=== PATIENT | female | born 1960 | race Caucasian/White ===

== ENCOUNTER 2018-06-13 16:59 | Emergency (ER) | payer OTHER ==
[2018-06-13 17:14] VITALS: BP 162/64; PULSE 91; TEMP 98.4; BMI 24.6
--- NOTE | 2018-06-13 17:17 | PDOC ---
History of Present Illness - General Chief Complaint: Chest Pain Stated Complaint: FEVER, CHEST PAIN, SOB, DIZZINESS Time Seen by Provider: 06/13/18 17:16 - History of Present Illness Initial Comments: 58yo F with PMH of neck pain presenting with chest pain. Patient states that this started at 3pm while she was sitting and watching television. Patient describes it as a "pressure" that she rates 6/10. It is non-radiating and lasted for about one hour, with no relieving or worsening factors. Patient denies diaphoresis, nausea, or vomiting. Denies personal or family history of [place]. Has felt this pain before, about two weeks ago while she was sleeping. Patient was recommended by her primary care doctor to see a veneer stacker, and has an appointment next month to see one whose name she does not remember. No hemoptysis, no recent surgical history, no recent mobilization, no hormone use, no history of DVT or PE. Patient reports that for the past week she has had fevers (101 this AM), chills, sore throat, congestion, facial and facial pain for which she has taken many aclw-azh-ppogaxo medicines including robitussin, ralph seltzer plus (most recently at 2pm), pedialyte, and nasal saline spray. Has not gotten the flu shot this season. Endorses a sick contact, a baby with cough and an ear infection. No urinary or abdominal complaints. Past History - Past Medical History Allergies/Adverse Reactions: Allergies Allergy/AdvReac Type Severity Reaction Status Date / Time No Known Allergies Allergy Verified 06/13/18 17:10 Home Medications: Ambulatory Orders NK [No Known Home Medication] 06/13/18 COPD: No - Immunization History Immunization Up to Date: Yes - Suicide/Smoking/Psychosocial Hx Smoking History: Never smoked Have you smoked in the past 12 months: No Hx Alcohol Use: No Drug/Substance Use Hx: No Substance Use Type: None Review of Systems - Review of Systems Comments:: Constitutional: +fever, +chills HEENT: +throat pain, no dysphagia Cardiovascular: +chest pain, no palpitations Respiratory: +cough, +shortness of breath Gastrointestinal: no abdominal pain, no nausea, no vomiting Genitourinary: no dysuria, no frequency Musculoskeletal: +myalgia, +back pain Skin: no rash, no itching Neurologic: +headache, +dizziness *Physical Exam - Vital Signs Last Vital Signs Temp Pulse Resp BP Pulse Ox 98.4 F 91 H 18 162/64 97 06/13/18 17:11 06/13/18 17:11 06/13/18 17:11 06/13/18 17:11 06/13/18 17:11 - Physical Exam Comments: General: Awake, alert, and fully oriented, in no acute distress Head: No signs of trauma Eyes: EOMI, sclera anicteric ENT: Moist mucus membranes, non-erythematous throat without swelling or exudate ; facial pain upon palpation overlying sinuses Neck: Normal ROM, supple Lungs: Lungs clear, Normal breath sounds Cardio: Regular rhythm, S1 and S2 present Abdomen: Soft, nontender. No guarding, no rebound, no masses Extremities: Normal range of motion, Distal pulses present SKIN: Warm, Dry, normal turgor Neurologic: Cranial nerves II through XII grossly intact. Normal speech Moderate Sedation - Procedure Monitoring Vital Signs: Procedure Monitoring Vital Signs Temperature 98.4 F 06/13/18 17:11 Pulse Rate 91 H 06/13/18 17:11 Respiratory Rate 18 06/13/18 17:11 Blood Pressure 162/64 06/13/18 17:11 O2 Sat by Pulse Oximetry (%) 97 06/13/18 17:11 ED Treatment Course - LABORATORY CBC & Chemistry Diagram: 06/13/18 18:15 06/13/18 18:15 Medical Decision Making - Medical Decision Making 58yo F with PMH of neck pain presenting with chest pain. -DDX includes but not limited to ACS, MSK, influenza, URI -EKG, rate 89, QTc 459, NSR, no ST d/e -1g Ofirmev, 1L NS, Guaifenesin 600mg -Will reassess -HEART Score=1 (for age) 06/13/18 18:22 Patient reports some relief of pain, now 09/1606/13/18 19:32 Slight leukocytosis, WBC=12.6, Electrolytes normal Influenza negative Tpn negative Likely sinusitis Patient discharged *DC/Admit/Observation/Transfer Diagnosis at time of Disposition: URI (upper respiratory infection) - Discharge Dispostion Disposition: HOME Condition at time of disposition: Stable - Referrals Referrals: ON STAFF,NOT [Primary Care Provider] - - Patient Instructions Printed Discharge Instructions: DI for Sinusitis Additional Instructions: You came into the ED for chest pain. We performed blood work, EKG, and an Xray which was normal. Follow-up with your primary care doctor in 5-7 days to discuss this ED visit and to further evaluate your chest pain. Make sure you go to your already scheduled cardiology appointment to assess your chest pain. You can take raiu-zex-mgavozz tylenol and motrin for pain. Follow the instructions on the medication bottle. We also recommend othb-tvb-hsywqbx nasal spray like flonase and trying a netipot to relieve your sinus pain. Call for emergency medicine services or go to the emergency room right away if you have symptoms of a heart attack, including: Chest pain, which may feel like a crushing weight A sense of fullness, squeezing, or pressure in the chest Rapid, irregular heartbeat Pain, tingling or numbness in the left shoulder and arm, the neck or jaw, or the right arm Sweating Nausea or vomiting Lightheadedness, weakness, or fainting Shortness of breath If you think you have an emergency, call for medical help right away. - Post Discharge Activity
[2018-06-13] MEDS ORDERED: ACETAMINOPHEN 1000 MG/100 ML VIAL (NON FORMULARY) IVPB ONE (17:48)
[2018-06-13] MEDS ORDERED: SODIUM CHLORIDE 1,000 ML IV STA (17:48)
[2018-06-13] MEDS ORDERED: guaiFENesin 600 MG TABLET.ER (FP) PO ONE (17:51)
--- NOTE | 2018-06-13 18:08 | PDOC ---
Attending Attestation - HPI HPI: The patient is a 58 year old female, with a significant past medical history of c-spine pain secondary to herniated discs, who presents to the emergency department with chest pain since 3pm, and URI symptoms for 1 week. She reports throat pain, facial/sinus pain, nasal congestion, cough for 1 week. She reports a fever of 101 F this morning. She reports taking 2 tylenol and an ralph seltzer plus around 1 pm with minimal relief. She states that her chest pain began at 3pm while at rest and describes it as pressure-like, pleuritic, non- radiating, worse with palpation, rates 6/10. Patient reports similar chest pain 2 weeks ago while at rest. Her PCP referred her to [facility] and she has an appointment next month. She states that she has not gotten the flu shot this season. She reports sick baby at home. Denies personal or family history of [place]. Denies recent travel or long car rides. Patient denies diaphoresis, nausea, or vomiting. No urinary complaints. No hemoptysis, no recent surgical history, no recent mobilization, no hormone use, no history of DVT or PE - Physicial Exam PE: Vitals: Triage Vital signs reviewed General Appearance: no acute distress, well nourished well developed Head/Face: Sinus tenderness to palpation. Eyes: Pupils equal reactive round, extraocular movement intact Ears: TMs normal bilaterally Nose: Nares patent bilaterally; Nasal congestion Throat: Posterior oropharynx without erythema, mucous membranes moist Neck: Supple; No Nuchal rigidity Chest Wall: Nontender Cardiac: Regular rate and rhythm, no murmurs, no rubs, no gallops Lungs: Clear to auscultation bilateral, good air movement bilaterally Abdomen: Soft, non distended, normal bowel sounds, non tender to palpation Extremities: Full range of motion to all extremities, no cyanosis, clubbing, or edema Skin: Warm and dry, no rashes or lesions, no rash, no petechiae Neuro: AOX3; Strength intact to all extremities, Sensation intact to all extremities, gait normal <Saige Escamilla - Last Filed: 06/13/18 18:57> - Resident Resident Name: Julia Lo - ED Attending Attestation I have performed the following: I have examined & evaluated the patient, The case was reviewed & discussed with the resident, I agree w/resident's findings & plan, Exceptions are as noted - Medical Decision Making 06/13/18 22:15 The patient is a 58 year old female, with a significant past medical history of c-spine pain secondary to herniated discs, who presents to the emergency department with chest pain since 3pm, and URI symptoms for 1 week. She reports throat pain, facial/sinus pain, nasal congestion, cough for 1 week. She reports a fever of 101 F this morning. She reports taking 2 tylenol and an ralph seltzer plus around 1 pm with minimal relief. She states that her chest pain began at 3pm while at rest and describes it as pressure-like, pleuritic, non- radiating, worse with palpation, rates 6/10. Patient reports similar chest pain 2 weeks ago while at rest. Her PCP referred her to [facility] and she has an appointment next month. She states that she has not gotten the flu shot this season. She reports sick baby at home. History and examination consistent with viral URI nonischemic EKG troponin negative flu negative chest x-ray demonstrates no acute pathology Patient feels somewhat better after IV Tylenol and fluids we'll recommend Prerna pot again Flonase at home for her sinusitis and symptomatic treatment for her URI symptoms she will follow-up with her primary care provider this week. She' ll return to emergency department for any severe worsening symptoms or for any concerns. Findings, the need for follow-up, strict return instructions discussed with patient. <Shaw Garcia - Last Filed: 06/13/18 22:16>
[2018-06-13] MEDS ORDERED: ACETAMINOPHEN INJECTION 100 ML IVPB ONE (18:28)
[2018-06-13 18:51] LABS: BASO % 1.4 % (0-2.0); EOS % 1.9 % (0-4.5); HEMATOCRIT 40.2 % (32.4-45.2); LYMPH % 29.1 % (8-40); MCH 31.8 pg (25.7-33.7); MCHC 34.7 g/dl (32.0-36.0); MEAN CELL VOLUME 91.5 fl (80-96); MEAN PLT VOLUME 8.1 fl (7.5-11.1); MONO % 6.9 % (3.8-10.2); NEUT % 60.7 % (42.8-82.8); PLATELET COUNT 233 K/MM3 (134-434); RBC 4.39 M/mm3 (3.60-5.2); WHITE BLOOD COUNT 12.6 K/mm3 (4.0-10.0)
[2018-06-13 19:19] LABS: ALBUMIN 3.7 g/dl (3.4-5.0); ALK PHOS 70 U/L (45-117); ANION GAP 8 MMOL/L (8-16); BILIRUBIN,TOTAL 0.3 mg/dL (0.2-1); BLOOD UREA NITROGEN 9 mg/dL (7-18); CALCIUM 8.5 mg/dL (8.5-10.1); CHLORIDE 105 mmol/L (98-107); CO2 27 mmol/L (21-32); CREATININE 0.8 mg/dL (0.55-1.3); GLUCOSE,RANDOM 90 mg/dL (74-106); POTASSIUM 3.8 mmol/L (3.5-5.1); SGOT/AST 19 U/L (15-37); SGPT/ALT 23 U/L (13-61); SODIUM 139 mmol/L (136-145); TOT PROT 7.6 g/dl (6.4-8.2)
--- NOTE | 2018-06-14 16:48 | EKG ---
Test Reason : Blood Pressure : / mmHG Vent. Rate : 089 BPM Atrial Rate : 089 BPM P-R Int : 160 ms QRS Dur : 080 ms QT Int : 378 ms P-R-T Axes : 043 021 018 degrees QTc Int : 459 ms NORMAL SINUS RHYTHM LEFT ATRIAL ENLARGEMENT OTHERWISE NORMAL ECG Confirmed by MD VERONICA, TORIE ([id number]) on 06/14/2018 4:48:29 PM Referred By: Confirmed By:TORIE MARTIN MD
== END 2018-06-13 21:08 | disposition home or self-care (01) ==
LOC: JER 16:59
PROC: 3E033NZ Introduction of Analgesics, Hypnotics, Sedatives into Peripheral Vein, Percutaneous Approach (ICD-10-PCS; principal; 2018-06-13)
DX: J06.9 Acute upper respiratory infection, unspecified (principal)
CPT/HCPCS: 36415; 71046-TC-FY; 80053; 84484; 85025; 87804; 93005; 93010; 96374; 99283-25; J0131; J7030

== ENCOUNTER 2019-03-12 18:31 | Emergency (ER) | payer OTHER ==
--- NOTE | 2019-03-12 19:06 | PDOC ---
Rapid Medical Evaluation Time Seen by Provider: 03/12/19 18:58 Medical Evaluation: Allergies Allergy/AdvReac Type Severity Reaction Status Date / Time No Known Allergies Allergy Verified 06/13/18 17:10 03/12/19 18:58 I have performed a brief in-person evaluation of this patient. The patient presents with a chief complaint of: scattered itchy rash to extremities, chest wall for 1 week. L ankle with swelling, warmth and redness. No known sick contacts with similar symptoms. Pertinent physical exam findings: scattered erythematous macular rash on upper and lower extremities, some of the lesions have central bite montejo. L ankle with warmth, erythema, swelling/tenderness, but FROM. The patient will proceed to the ED for further evaluation. Discharge Disposition - Diagnosis Rash - Referrals - Patient Instructions - Post Discharge Activity
[2019-03-12 19:12] VITALS: BP 134/59; PULSE 84; TEMP 98; BMI 24.7
[2019-03-12] MEDS ORDERED: diphenhydrAMINE HCL 12.5 MG/5 ML UNIT-DOSE CUPS PO ONE (20:32)
[2019-03-12] MEDS ORDERED: diphenhydrAMINE HCL 25 MG CAPSULE (FP) PO ONE (21:06)
[2019-03-12] MEDS ORDERED: diphenhydrAMINE HCL 50 MG CAPSULE PO ONE (21:06)
--- NOTE | 2019-03-12 21:11 | PDOC ---
History of Present Illness - General Chief Complaint: Rash Stated Complaint: BLISTERS/BODY ACHES Time Seen by Provider: 03/12/19 18:58 Past History - Past Medical History Allergies/Adverse Reactions: Allergies Allergy/AdvReac Type Severity Reaction Status Date / Time No Known Allergies Allergy Verified 03/12/19 18:58 Home Medications: Ambulatory Orders Doxycycline Hyclate 100 mg PO BID #28 tablet 03/12/19 Valacyclovir HCl [Valtrex] 1,000 mg PO TID #21 tablet 03/12/19 COPD: No - Immunization History Immunization Up to Date: Yes - Psycho Social/Smoking Cessation Hx Smoking History: Never smoked Have you smoked in the past 12 months: No Hx Alcohol Use: No Drug/Substance Use Hx: No Substance Use Type: None *Physical Exam - Vital Signs Last Vital Signs Temp Pulse Resp BP Pulse Ox 98 F 84 16 134/59 L 99 03/12/19 19:00 03/12/19 19:00 03/12/19 19:00 03/12/19 19:00 03/12/19 19:00 Medical Decision Making - Medical Decision Making HPI: 58yo F with no reported PMH presenting with rash x 1 week. Patient states all her rashes are itchy. She has never had a rash like this before. The rash started on her chest medial to her right breast and she now has itchy areas on her bilateral lower extremities. Patient denies new exposure: no new soaps, detergents, animals, environments, foods, or medications. Did not get the shingles vaccine yet because her doctor told her she was too young. Has two dogs that are kept from wooded areas. No fevers or chills. ROS: Constitutional: no fever, no chills HEENT: no throat pain, no dysphagia Cardiovascular: no chest pain, no leg swelling Respiratory: no cough, no shortness of breath Gastrointestinal: no abdominal pain, no nausea Genitourinary: no dysuria, no hematuria Musculoskeletal: no myalgia, no arthralgia Skin: +rash, +itching Neurologic: no headache, no weakness PE: General: Awake, alert, and fully oriented, in no acute distress Head: No signs of trauma Eyes: EOMI, sclera anicteric ENT: Moist mucus membranes Neck: Normal ROM, supple Lungs: Lungs clear, Normal breath sounds Cardio: Regular rhythm, S1 and S2 present Abdomen: Soft, nontender. No guarding, no rebound, no masses Extremities: Normal range of motion, Distal pulses present SKIN: Vesicular mge-hchvd-ahylto blanching patch medial to right breast, lesion on right medial calf that is erythematous and midly indurated; erythema noted on second and third toes on the right and left feet; erythema and edema along left lateral malleolus; otherwise warm, Dry, normal turgor Neurologic: Cranial nerves II through XII grossly intact. Normal speech ED Course/MDM: DDX includes but not limited to poison zahida exposure, atopic dermatitis, eczema, psoriasis, cellulitis, herpes zoster The rash on the patient's test appears different from that of her lower extremities. They may be of different etiology. While the rash on her chest appears similar to that of herpes zoster, she states the area is itchy rather than painful which is not typical for zoster. Patient [place]endemic region and though she denies recent outdoor activities, she has dogs that may have exposed her to ticks. Diphenhydramine given for pruritis Patient covered for Lyme, cellulitis, and zoster with doxycycline and valtrex Lyme test drawn Callback request placed regarding Lyme result Discharged with return precautions Discharge - Discharge Information Problems reviewed: Yes Clinical Impression/Diagnosis: Rash Condition: Stable Disposition: HOME - Additional Discharge Information Prescriptions: Doxycycline Hyclate 100 mg PO BID #28 tablet Valacyclovir HCl [Valtrex] 1,000 mg PO TID #21 tablet - Follow up/Referral Referrals: ON STAFF,NOT [Primary Care Provider] - Belén Merida [Staff Physician] - - Patient Discharge Instructions Patient Printed Discharge Instructions: DI for Shingles, DI for Rash Additional Instructions: You came to the emergency department for rash. Prescription sent to your pharmacy. Take as instructed. You can take benadryl [id number]-jas-[id number] to help with itchiness symptoms. We performed a test for Lyme disease. You will be called if the result is abnormal. Follow up with your primary care doctor within 72 hours to discuss this visit and to further evaluate your symptoms. Call and make an appointment. Your work is not complete until you do so. Immediate medical attention is required if you experience: Increased pain or swelling, signs of infection including fever and chills, nausea and vomiting, lightheadedness, inability to breathe or very rapid breathing, rapid irregular heartbeat, chest pain. If you think you are having an emergency, call for emergency medical services or present to the emergency department right away . - Post Discharge Activity
[2019-03-12] MEDS ORDERED: valACYclovir HCL 1000 MG TABLET PO ONE (21:30)
[2019-03-12] MEDS ORDERED: DOXYCYCLINE HYCLATE 100 MG CAPSULE PO ONE ×2 (21:31→22:19)
[2019-03-12] MEDS ORDERED: valACYclovir HCL 500 MG TABLET (FP) ONE (22:18)
--- NOTE | 2019-03-13 01:45 | PDOC ---
Documentation entered by Sylvia Miles SCRIBE, acting as scribe for Audrey Melendez MD. Audrey Melendez MD: This documentation has been prepared by the Ginger bush Adrianna, SCRIBE, under my direction and personally reviewed by me in its entirety. I confirm that the documentation accurately reflects all work, treatment, procedures, and medical decision making performed by me. Attending Attestation - Resident Resident Name: Julia Lo - ED Attending Attestation I have performed the following: I have examined & evaluated the patient, The case was reviewed & discussed with the resident, I agree w/resident's findings & plan - HPI HPI: The patient is a 58 year old female, with a significant PMH of c-spine pain (2/ 2 herniated discs), who presents to the ED for evaluation of rash for one week. Patient notes that the developed a vesicular rash on her right breast last week. She states she had a masseuse visit her home, who massaged both herself and her family (no other family members affected with rash). Throughout the week, she developed multiple matilde areas of redness on her right inner calf, left foot, and bilateral toes. Patient states the rashes originally look like ringworm when they first develop, but transition into blisters. She denies any exposure to allergens and has not been in [place] recently. Patient is from the [facility] and has 2 dogs, but has never had any issues with her pets. She denies other systemic complaints at this time. Allergies: NKA, NKDA Surgical HIstory: None reported Social History: Denies EtOH, tobacco, or illicit drug use PCP: NOS - Physicial Exam PE: GENERAL: Awake, alert, and fully oriented, in no acute distress. Afebrile. HEAD: No signs of trauma EYES: PERRLA, EOMI, sclera anicteric, conjunctiva clear ENT: Auricles normal inspection, hearing grossly normal, nares patent, oropharynx clear without exudates. Moist mucosa NECK: Normal ROM, supple, no lymphadenopathy, JVD, or masses LUNGS: Breath sounds equal, clear to auscultation bilaterally. No wheezes, and no crackles HEART: Regular rate and rhythm, normal S1 and S2, no murmurs, rubs or gallops ABDOMEN: Soft, nontender, normoactive bowel sounds. No guarding, no rebound. No masses EXTREMITIES: Normal range of motion, no edema. No clubbing or cyanosis. No cords, erythema, or tenderness NEUROLOGICAL: Cranial nerves II through XII grossly intact. Normal speech, normal gait SKIN: +Vesicular rash on right breast. +New rash coming up on the right upper back, possibly the same dermatome as the vesicles on the breast. +Rash on the right inner calf that is similar in appearance to ringworm. +Rash on the left foot and bilateral toes that look like blisters in appearance. +Questionable LYME disease, possible RMSF (patient is exposed to rats/mice)Warm, Dry, normal turgor. - Medical Decision Making 03/13/19 20:22 Pt has shingles on the right breast; new shingles rash appearing on the back in the corresponding dermatome. Pt has a discrete rash of blisters and ringlike circles and erythema on he bilat lower legs, ankles and feet. Unclear if this is RMSF or lyme or some other tick borne rash. She will be treated with doxy for the cellulitic component. She will also be treated with valtrex. She will be called with the lyme titer results.
== END 2019-03-12 23:22 | disposition home or self-care (01) ==
LOC: JER 18:31
DX: B02.9 Zoster without complications (principal)
CPT/HCPCS: 36415; 86618; 99281-25